=== PATIENT | male | born 1980 | race Caucasian/White ===

== ENCOUNTER 2019-05-25 10:00 | Inpatient (IN) | payer OTHER ==
[~2019-05-25] VITALS: Ht 182.9 cm; Wt 87.5 kg
[2019-05-25] MEDS ORDERED: LIDOCAINE-MPF 1%, 2ML INFIL ONE (11:00)
[2019-05-25] MEDS ORDERED: ACETAMINOPHEN 500 MG TABLET PO ONE (11:00)
[2019-05-25] MEDS ORDERED: GABAPENTIN 300 MG CAPSULE PO ONE (11:00)
[2019-05-25] MEDS ORDERED: OMEG1CAP23 PO (11:05)
[2019-05-25] MEDS ORDERED: GABA300C10 PO (11:05)
[2019-05-25] MEDS ORDERED: HYDR-3241 PO (11:05)
[2019-05-25] MEDS: LACTATED RINGERS 1,000 ML IV SCH ×2 (11:09→11:31)
[2019-05-25 11:14] VITALS: BP 131/86
[2019-05-25] MEDS ORDERED: FENTANYL PF 250 MCG/5ML ONE (11:46)
[2019-05-25] MEDS ORDERED: MIDAZOLAM 1 MG/ML, 2ML ONE (11:46)
[2019-05-25] MEDS ORDERED: BACITRACIN 50,000 UNIT ONE (12:06)
[2019-05-25] MEDS ORDERED: BUPIVACAINE/PF 0.5% ONE (12:06)
[2019-05-25] MEDS ORDERED: BACITRACIN OINT 500U/GM, 15 GM ONE (12:06)
[2019-05-25] MEDS ORDERED: KETAMINE 10 MG/ML, 20ML ONE (12:29)
[2019-05-25] MEDS ORDERED: OXYcodone 5 MG/5 ML ORAL.SOL UDC PO PRN (13:30)
[2019-05-25] MEDS ORDERED: ALBUTEROL/IPRATROPIUM 2.5MG/0.5MG, 3 ML NPPB PRN (13:30)
[2019-05-25] MEDS ORDERED: hydrALAzine 20 MG/ML, 1ML IV PRN (13:30)
[2019-05-25] MEDS ORDERED: MEPERIDINE/PF 25MG/ML,1ML IVPush PRN (13:30)
[2019-05-25] MEDS ORDERED: METOPROLOL 1 MG/ML, 5ML IV PRN (13:30)
[2019-05-25] MEDS ORDERED: MIDAZOLAM 1 MG/ML, 2ML IV PRN (13:30)
[2019-05-25] MEDS ORDERED: PROMETHAZINE 25 MG/ML, 1ML IV PRN (13:30)
[2019-05-25] MEDS ORDERED: DIAZEPAM 5 MG/ML, 2ML IVPush PRN (13:30)
[2019-05-25] MEDS ORDERED: PROPOFOL 50 ML ONE ×2 (13:40→15:57)
[2019-05-25] MEDS ORDERED: SUCCINYLCHOLINE 20 MG/ML, 10ML ONE (13:44)
[2019-05-25] MEDS ORDERED: PROPOFOL 10 MG/ML, 20ML ONE (13:44)
[2019-05-25] MEDS ORDERED: ROCURONIUM 10MG/ML,5ML ONE (13:44)
[2019-05-25] MEDS ORDERED: ONDANSETRON 2MG/ML, 2ML ONE (13:44)
[2019-05-25] MEDS ORDERED: DEXAMETHASONE 4 MG/ML, 1ML ONE (13:44)
[2019-05-25] MEDS ORDERED: CEFAZOLIN 1,000 MG ONE (13:44)
[2019-05-25] MEDS ORDERED: OXYcodone 5 MG/5 ML ORAL.SOL UDC ONE (15:16)
[2019-05-25] MEDS ORDERED: MEPERIDINE/PF 25MG/ML,1ML ONE (15:16)
[2019-05-25] MEDS ORDERED: METHOCARBAMOL 1,000 MG in DEXTROSE 5% 100 ML IV STA (15:20)
[2019-05-25] MEDS ORDERED: FENTANYL PF 100 MCG/2ML ONE (15:22)
[2019-05-25] MEDS: FENTANYL PF 100 MCG/2ML IV PRN ×2 (15:24→15:34)
[2019-05-25] MEDS ORDERED: HYDROmorphone 1 MG/ML, 1ML VIAL ONE (15:36)
[2019-05-25] MEDS: HYDROmorphone 2 MG/ML, 1ML IVPush PRN ×2 (15:39→15:46)
[2019-05-25] MEDS ORDERED: BISACODYL 10 MG SUPP PR PRN (16:30)
[2019-05-25] MEDS ORDERED: DIPHENHYDRAMINE 50 MG CAPSULE PO PRN (16:30)
[2019-05-25] MEDS ORDERED: CEFAZOLIN PMX 1GM/50ML 50 ML IVPB SCH (16:30)
[2019-05-25] MEDS ORDERED: ONDANSETRON 2MG/ML, 2ML IVPush PRN (16:30)
[2019-05-25] MEDS ORDERED: SENNA/DOCUSATE TABLET PO PRN (16:30)
[2019-05-25] MEDS ORDERED: PHARMACY MAY ADJ FOR RENAL FX MC PRN (16:30)
[2019-05-25] MEDS ORDERED: DIPHENHYDRAMINE 50 MG/ML, 1ML IM PRN (16:30)
[2019-05-25] MEDS ORDERED: ACETAMINOPHEN 325 MG TABLET PO PRN ×2 (16:30→19:30)
[2019-05-25] MEDS ORDERED: MAGNESIUM HYDROXIDE 8%, 30ML UDC PO PRN (16:30)
[2019-05-25] MEDS ORDERED: DIPHENHYDRAMINE 50 MG/ML, 1ML IVPush PRN (16:30)
[2019-05-25] MEDS ORDERED: ACETAMINOPHEN 650 MG SUPP PR PRN ×2 (16:30→19:30)
[2019-05-25] MEDS ORDERED: PROMETHAZINE 25 MG/ML, 1ML IM PRN (16:30)
[2019-05-25] MEDS ORDERED: morphine SULFATE 10 MG/ML, 1ML IVPush PRN (16:30)
[2019-05-25] MEDS ORDERED: LABETALOL 5MG/ML, 20ML IVPush PRN (16:30)
[2019-05-25] MEDS ORDERED: TAMSULOSIN 0.4 MG CAP.ER.24H ONE (16:50)
[2019-05-25] MEDS ORDERED: TAMSULOSIN 0.4 MG CAP.ER.24H PO ONE (17:00)
[2019-05-25] MEDS: OXYcodone/APAP 5/325MG TABLET PO PRN (17:53)
[2019-05-25 18:10] VITALS: BP 142/89
[2019-05-25] MEDS ORDERED: NS + 20MEQ KCL 1,000 ML IV SCH (19:00)
[2019-05-25] MEDS ORDERED: GABAPENTIN MC SCH (19:30)
[2019-05-25 19:51] VITALS: BP 143/84
[2019-05-25] MEDS: NS + 20MEQ KCL 1,000 ML IV SCH (19:59)
[2019-05-25] MEDS: HYDROcodone/APAP 10/325 MG TABLET PO PRN (20:40)
[2019-05-25] MEDS ORDERED: GABAPENTIN 300 MG CAPSULE PO PRN (21:00)
[2019-05-25] MEDS: SODIUM CHLORIDE FLUSH 10ML SYR IVF SCH (21:00)
[2019-05-25] MEDS: CEFAZOLIN 2,000 MG in SODIUM CHLORIDE 0.9% 50 ML IV SCH (21:46)
[2019-05-25 23:45] VITALS: BP 145/80
[2019-05-26] MEDS: METHOCARBAMOL 750 MG in DEXTROSE 5% 100 ML IV SCH ×2 (00:25→09:47)
[2019-05-26] MEDS ORDERED: METHOCARBAMOL 750 MG in DEXTROSE 5% 100 ML IV PRN (00:30)
[2019-05-26] MEDS: HYDROcodone/APAP 10/325 MG TABLET PO PRN ×3 (00:40→09:27)
[2019-05-26 03:28] VITALS: BP 141/68
[2019-05-26] MEDS: NS + 20MEQ KCL 1,000 ML IV SCH (04:53)
[2019-05-26] MEDS: CEFAZOLIN 2,000 MG in SODIUM CHLORIDE 0.9% 50 ML IV SCH (05:03)
[2019-05-26] MEDS ORDERED: DEXAMETHASONE 4 MG/ML, 1ML IVPush ONE (07:00)
[2019-05-26 07:10] VITALS: BP 126/77
[2019-05-26] MEDS: SODIUM CHLORIDE FLUSH 10ML SYR IVF SCH (08:11)
[2019-05-26] MEDS ORDERED: GABAPENTIN 300 MG CAPSULE PO SCH (09:00)
[2019-05-26] MEDS: OXYcodone/APAP 5/325MG TABLET PO PRN (11:02)
[2019-05-26] MEDS ORDERED: CYCL-259 PO (12:03)
[2019-05-26] MEDS ORDERED: HYDR-36 PO (12:03)
[2019-05-26] MEDS ORDERED: TAMS-11 PO (12:04)
[2019-05-26] MEDS ORDERED: METH4TAB2 PO (12:05)
[2019-05-26] MEDS ORDERED: GABA300C10 PO (12:06)
[2019-05-27] MEDS ORDERED: METHOCARBAMOL 750 MG TABLET PO SCH (23:30)
[2019-05-28] MEDS ORDERED: METHOCARBAMOL 750 MG TABLET PO SCH
== END 2019-05-26 15:15 | disposition home or self-care (01) | DRG 520 ==
LOC: ORIP 10:10 → 4NE 18:14 → DCLOUNGE 05-26 12:51
PROVIDERS: ADMIT Neurological Surgery; ATTEND Neurological Surgery
PROC: 0SB20ZZ Excision of Lumbar Vertebral Disc, Open Approach (ICD-10-PCS; 2019-05-25)
PROC: 01NB0ZZ Release Lumbar Nerve, Open Approach (ICD-10-PCS; principal; 2019-05-25 12:00)
DX: M51.16 Intervertebral disc disorders with radiculopathy, lumbar region (principal); M48.02 Spinal stenosis, cervical region; Z82.49 Family history of ischemic heart disease and other diseases of the circulatory system; E78.00 Pure hypercholesterolemia, unspecified; G43.909 Migraine, unspecified, not intractable, without status migrainosus
CPT/HCPCS: 72100; S0020; G0378; J0690; J1100; J1170; J2250; J2405; J2704; J3010; J3480; J0330; J2175; J2270; J2800; J7120